=== PATIENT | male | born 1935 | race Caucasian/White ===

== ENCOUNTER 2018-11-18 01:09 | Inpatient (IN) | payer OTHER, MEDICARE ==
[~2018-11-18] VITALS: Ht 185.4 cm; Wt 103.1 kg
[~2018-11-18 01:09] MED LIST: ALLO100 PO; ATOR40TA PO; BISA10S PR; BUME2 PO; CLOP75 PO; Dandruff 1% Sh325 ML TP; Dyazide 37.5-21 EACH PO; HYDRA50 PO; ISOSORBIDE MONONITRA PO; LISI20 PO; LUBRICANT 0.5-1 EACH OP; METO25 PO; Omeprazole20 M1 PO; SIMV10 PO; TERB250 PO; TERBINAFINE HCL 1% TOP
[2018-11-18 01:36] LABS: Hematocrit 40.3 % (37.0-53.0); Hemoglobin 12.9 g/dL (13.5-17.5); Mean Corpuscular HGB 30.1 pg (26.0-34.0); Mean Corpuscular Volume 94 fL (80-100); Mean Platelet Volume 10.5 fL (9.1-12.4); Platelet Count 189 K/mm3 (150-400); RDW Coefficient Variation 12.6 % (11.7-14.2); RDW Standard Deviation 43.5 fL (35.1-46.3); Red Blood Cell Count 4.28 M/mm3 (4.30-5.90); White Blood Cell Count 15.17 K/mm3 (4.00-11.30)
[2018-11-18] MEDS ORDERED: LOSA50 PO (01:53)
[2018-11-18 01:54] LABS: BAND PERCENT MAN 8 % (0-8); BASOPHILS PERCENT MAN 0 % (0-2); EOSINOPHILS PERCENT MAN 0 % (0-6); LYMPHOCYTES PERCENT MAN 2 % (21-46); MONOCYTES PERCENT MAN 2 % (4-13); NEUTROPHILS ABSOLUTE MAN 14.56 K/mm3 (1.96-9.15); SEG NEUTROPHILS PERCENT MAN 88 % (41-73); TOTAL CELLS COUNTED 100
[2018-11-18] MEDS ORDERED: Ranitidine HCl150 M1 PO (01:54)
[2018-11-18 02:01] LABS: Albumin, Blood 3.5 g/dL (3.4-5.0); Albumin/Globulin Ratio 1.2 (0.8-1.8); Bilirubin, Total 0.4 mg/dL (0.1-1.0); Bun/Creatinine Ratio 15.7 (12.0-20.0); Calcium, Blood 7.8 mg/dL (8.5-10.1); Creatinine, Blood 2.35 mg/dL (0.60-1.20); Total Protein, Blood 6.5 g/dL (6.4-8.2)
[2018-11-18 02:04] LABS: Troponin I 1.62 ng/mL (0.000-0.040)
--- NOTE | 2018-11-18 03:58 | NUR ---
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 PT has hx of simular elevated troponin 09/30/17 2.69 and has same lt BBB. he had rt ICA stent at that time. PT has DNR status and does not agressive tx of ACS. Blood cultures are being drawn as well as urine culture pending. PT has htn and ckd chf with bnp 332. and Son accompany PT to ER and agree agressive treatment not desired. Will be on tele monitor. lovenox, plavix and asa rx . Await admission
[2018-11-18 05:27] LABS: Hematocrit 38.6 % (37.0-53.0); Hemoglobin 12.4 g/dL (13.5-17.5); Mean Corpuscular HGB 30.2 pg (26.0-34.0); Mean Corpuscular HGB Conc 32.1 g/dL (31.5-36.5); Mean Corpuscular Volume 94 fL (80-100); Mean Platelet Volume 10.7 fL (9.1-12.4); Platelet Count 201 K/mm3 (150-400); RDW Coefficient Variation 12.7 % (11.7-14.2); RDW Standard Deviation 43.7 fL (35.1-46.3); White Blood Cell Count 17.33 K/mm3 (4.00-11.30)
--- NOTE | 2018-11-18 05:31 | NUR ---
FIELDSTART IV LT AC PRESENT ON ADMISSION
[2018-11-18 06:12] LABS: Albumin, Blood 3.2 g/dL (3.4-5.0); Albumin/Globulin Ratio 1.1 (0.8-1.8); Bilirubin, Total 0.6 mg/dL (0.1-1.0); Bun/Creatinine Ratio 15.3 (12.0-20.0); Calcium, Blood 7.7 mg/dL (8.5-10.1); Creatinine, Blood 2.55 mg/dL (0.60-1.20); Potassium, Blood 4.4 mmol/L (3.5-5.5); Total Protein, Blood 6.2 g/dL (6.4-8.2)
--- NOTE | 2018-11-18 07:15 | NUR ---
PT ADMITTED WITH SEPSIS DX UTI AND ELEVATED TROPONIN. SENT FROM [facility]. ALERT ORIENTED PLEASANT WITH MILD MEMORY DEFICITS. KATHRYN SHOWS NSR FREQ PACS. DENIES ACUTE DISTRESS. VSS. DNR STATUS.
--- NOTE | 2018-11-18 10:49 | NUR ---
2ND DEGREE HEART BLOCK CONTINUOUS PULSE OX ALARMS BECAUSE HEART RATE CONTINUES TO GO BELOW 40BPM. SPACE CONTROL SUPERVISOR CALLED. STEPHY SPACE CONTROL SUPERVISOR REPORTED THAT THE PT IS GOING BACK AND FORTH BETWEEN SINUS RHYTHM WITH A 2ND DEGREE BLOCK AND NORMAL SINUS RHYTHM WITH OCCASIONAL PVCS. VITALS STABLE. PT DENIES SOB OR CHEST PAIN. PT STATES HE FEELS "FINE" DR. VALDEZ NOTIFIED. STATED SHE WILL ASSESS HIS TELE AND REVIEW HIS CHART. WILL CONTINUE TO MONITOR PT CONDITION.
[2018-11-18 11:25] LABS: Troponin I 24.3 ng/mL (0.000-0.040)
--- NOTE | 2018-11-18 11:36 | NUR ---
CRITICAL TROPONIN LAB CALLED WITH A TROPONIN OF 24.3. DR. VALDEZ NOTIFIED. DR. VALDEZ CURRENTLY REVIEWING PT CHART & EKG STRIPS. VITALS SIGNS STABLE. DR. VALDEZ ORDERED TO TRANSFER PT TO PCU. WILL CONTINUE TO MONITOR PT UNTIL TRANSFER IS COMPLETE.
[2018-11-18 11:46] LABS: Creatine Kinase MB 138.9 ng/mL (0.0-3.6)
--- NOTE | 2018-11-18 12:15 | NUR ---
REPORT CALLED TO LON BORJAS REPORT CALLED AT 1200. PT WILL BE TRANSFERED TO PCU SOON BEDSIDE ECHO IS FINISHED. WILL CONTINUE TO MONITOR UNTIL TURNOVER IS COMPLETE.
[2018-11-18 12:21] LABS: International Normalized Ratio 1.03; Prothrombin Time Results 10.9 Sec (9.7-11.5)
--- NOTE | 2018-11-18 12:56 | NUR ---
PT TRANSFERED PT TRANSFERED TO PCU. LON BORJAS TOOK PT OVER. HEPARIN VERIFIED A SECOND TIME AT BEDSIDE. GLASS WORKER MET PT AT BEDSIDE BEFORE TRANSFER. PT AND FAMILY WANT NO INVASIVE PROCEDURE TO TAKE PLACE AT THIS TIME. HEPARIN BOLUS GIVEN PRIOR TO TRANSFER. FAMILY NOTIFIED.
[2018-11-18 17:04] LABS: Troponin I 36.6 ng/mL (0.000-0.040)
[2018-11-18 17:26] LABS: Creatine Kinase MB 125.7 ng/mL (0.0-3.6); Creatine Kinase MB Index 13.7 (0.0-4.0)
[2018-11-18 17:39] LABS: CHOL/HDL RATIO 1.5; Cholesterol 59 mg/dL (50-200); HDL Cholesterol 39 mg/dL (>39); LDL/HDL RATIO 0.2; Low Density Lipoprotein Chol 9 mg/dL (0-110); Triglycerides 53 mg/dL (30-160); Very Low Density Lipoprot Chol 10 mg/dL (6-32)
--- NOTE | 2018-11-18 18:37 | NUR ---
END OF SHIFT PT HAS HAD NO CHANGES TO THE ASSESMENT, VSS, PT ABLE TO WALK, PT IS HAVING NO CHEST PAIN, PT IS WANT JUST TREATMENT
--- NOTE | 2018-11-18 22:24 | NUR ---
UPDATE: CALLED NURSE PRACTIONPEREZ MORENO AND NOTIFIED THAT THERE WERE NO FURTHER TROPONINS ORDERED. NURSE PRACTIONER JOSH STATED THAT SINCE PATIENT WAS MEDICAL MANAGMENT ONLY NO FURTHER TROPONINS NEEDED TO BE CHECKED AT THIS TIME. NO NEW ORDERS GIVEN.
[2018-11-19 05:21] LABS: BASOPHILS ABSOLUTE AUTO 0.03 K/mm3 (0.00-0.23); BASOPHILS PERCENT AUTO 0 % (0-2); EOSINOPHILS ABSOLUTE AUTO 0.12 K/mm3 (0.00-0.68); EOSINOPHILS PERCENT AUTO 1 % (0-6); Hematocrit 38.4 % (37.0-53.0); Hemoglobin 12.4 g/dL (13.5-17.5); IMMATURE GRAN ABSOLUTE AUTO 0.07 K/mm3 (0.00-0.10); IMMATURE GRAN PERCENT AUTO 1 % (0-1); LYMPHOCYTES ABSOLUTE AUTO 0.91 K/mm3 (0.84-5.20); LYMPHOCYTES PERCENT AUTO 8 % (21-46); MONOCYTES ABSOLUTE AUTO 0.76 K/mm3 (0.16-1.47); MONOCYTES PERCENT AUTO 7 % (4-13); Mean Corpuscular HGB 30.6 pg (26.0-34.0); Mean Corpuscular HGB Conc 32.3 g/dL (31.5-36.5); Mean Corpuscular Volume 95 fL (80-100); Mean Platelet Volume 10.9 fL (9.1-12.4); NEUTROPHILS ABSOLUTE AUTO 9.75 K/mm3 (1.96-9.15); NEUTROPHILS PERCENT AUTO 84 % (41-73); Platelet Count 166 K/mm3 (150-400); RDW Coefficient Variation 12.4 % (11.7-14.2); Red Blood Cell Count 4.05 M/mm3 (4.30-5.90); White Blood Cell Count 11.64 K/mm3 (4.00-11.30)
[2018-11-19 05:47] LABS: Albumin, Blood 3.1 g/dL (3.4-5.0); Albumin/Globulin Ratio 0.9 (0.8-1.8); Bilirubin, Total 0.4 mg/dL (0.1-1.0); Bun/Creatinine Ratio 16.7 (12.0-20.0); Calcium, Blood 7.6 mg/dL (8.5-10.1); Creatinine, Blood 2.52 mg/dL (0.60-1.20); Globulin, Blood 3.3 g/dL (2.2-4.0); Magnesium, Blood 2.2 mg/dL (1.6-2.4); Phosphorus, Blood 4.1 mg/dL (2.5-4.9); Potassium, Blood 4.3 mmol/L (3.5-5.5); Total Protein, Blood 6.4 g/dL (6.4-8.2)
--- NOTE | 2018-11-19 06:46 | NUR ---
SHIFT SUMMARY PATIENT PLEASENT AND COOPERATIVE THROUGHOUT THE NIGHT. NO COMPLAINTS OF PAIN OR DISCOMFORT THROUGHOUT THE NIGHT. HEPARIN GTT RUNNING PER ORDERS. PATIENT HAS HAD SEVERAL SMALL NOSE BLEEDS THROUGHOUT THE NIGHT BUT PATIENT REPORTS THAT HE HAS GOTTEN FREQUENT NOSE BLEEDS SINCE HE WAS A CHILD. PATIENT BLADDER SCANNED PER ORDERS. WILL CONTINUE TO MONITOR PATIENT AND REPORT TO ONCOMING RN.
--- NOTE | 2018-11-19 11:48 | NUR ---
Assumed Care: Assumed care of pt at approx 0700. VSS. In no apparent sign of distress. Pt is A&Ox4. Bed alarm on for safety, and pt uses call light intermittently. Repositions self. See shift assessment for detailed assessment. Plan is to medically manage NSTEMI at this time per pt wishes. Pt on heparin gtt which was verified with noc shift RN during bedside report and is running per emar. Pt currently resting in bed with call light within reach. Denies any further questions, complaints or requests at this time. Will continue to monitor.
--- NOTE | 2018-11-19 18:06 | NUR ---
Shift Summary No acute changes since initial shift assessment. VSS. In no apparent sign of distress. Pt is A&Ox4, but forgets to call at times, so bed alarm is on. Pt has denied any CP today, and has not had any acute events on tele. Repositions self and calls appropriately. Denies any complaints at all. Breathing has remained stable on RA. Denies any further questions, complaints or requests at this time. Will continue to monitor until report is given to noc shift RN.
--- NOTE | 2018-11-19 20:27 | NUR ---
ASSUMED CARE OF PATIENT AT APPROXIMATELY 1900 FROM LIVIER Vela RN. PATIENT ALERT AND ORIENTED TO SELF, AND LOCATION; PATIENT USES CALL LIGHT OCCASIONALLY. BED ALARM WENT OFF WHEN PATIENT WAS USING URINAL INDEPENDENTLY; EDUCATED ON CALLING. PATIENT DENIES CP/PRESSURE, PAIN ELSEWHERE, NUMBNESS, TINGLING, DIZZINESS AND NAUSEA. SBA OUT OF BED. NSR W/ BBB AND 1ST DEGREE BLOCK ON TELE; OXYGEN SATURATION ABOVE 90% ON ROOM AIR; HOME CPAP IN ROOM FOR NIGHT. HEPARIN INFUSING PER ORDER. PATIENT CURRENTLY WATCHING TV IN BED; CALL LIGHT IN REACH; BED IN LOWEST POSISTION; BED ALARM ON; WILL CONTINUE TO MONITOR AND ASSESS UNTIL END OF SHIFT.
--- NOTE | 2018-11-19 20:52 | NUR ---
TELE SEMICONDUCTOR PROCESSING TECHNICIAN CALLED TO REPORT PATIENT HAVING 9-12 PVCS A MINUTE SINCE APPROXIMATELY 1500.
[2018-11-20 03:44] LABS: Hematocrit 36.2 % (37.0-53.0); Hemoglobin 11.9 g/dL (13.5-17.5); Mean Corpuscular HGB 30.7 pg (26.0-34.0); Mean Corpuscular HGB Conc 32.9 g/dL (31.5-36.5); Mean Corpuscular Volume 94 fL (80-100); Platelet Count 170 K/mm3 (150-400); RDW Coefficient Variation 12.4 % (11.7-14.2); RDW Standard Deviation 42.5 fL (35.1-46.3); Red Blood Cell Count 3.87 M/mm3 (4.30-5.90); White Blood Cell Count 9.55 K/mm3 (4.00-11.30)
[2018-11-20 04:01] LABS: Bun/Creatinine Ratio 17.8 (12.0-20.0); Calcium, Blood 7.6 mg/dL (8.5-10.1); Creatinine, Blood 2.19 mg/dL (0.60-1.20)
--- NOTE | 2018-11-20 06:21 | NUR ---
PATIENT SLEPT ABOUT EIGHT HOURS LAST NIGHT; WORE HOME CPAP FOR APPROXIMATELY 6 HOURS LAST NIGHT. PATIENT ATTEMPTED TO AMBULATE INDEPENDENTLY FREQENTLY; BED ALARM SOUNDED. PATIENT URINATED FREQUENTLY LAST NIGHT. VSS. NO OTHER ACUTE CHANGES TO REPORT. WILL CONTINUE TO MONITOR AND ASSESS UNTIL END OF SHIFT.
--- NOTE | 2018-11-20 14:27 | NUR ---
Assumed Care Assumed care of pt at approx 0700. VSS. In no apparent sign of distress. Pt is A&Ox4. Bed alarm on. Denies any pain. At 1020, pt began experiencing some chest pressure 4/10 after he ambulated to the bathroom and c/o some SOB as well. Administerd nitro per orders, applied 2L O2 NC d/t SpO2 reading at 91% and notified Dr. Gardner. No further orders received at that time. Pt states that the 3 doses of nitro decreased his pain to barely a 1/10, and denied any further SOB.
[2018-11-20] MEDS ORDERED: VANICREAM453 GM TOP (14:38)
--- NOTE | 2018-11-20 18:08 | NUR ---
Shift Summary No acute changes since initial shift assessment. VSS. In no apparent sign of distress. Pt is A&Ox4 but has shown some short term memory impairment t/o the shift. Tolerated shower well today. No more CP this shift since episode at 1020 today. No other acute changes. Small amnt of ST elevation from approx [address] Gardner aware. No other changes on tele. Pt currently resting in bed with call light within reach. Denies any further questions, complaints or requests at this time. Will continue to monitor until report is given to noc shift RN.
--- NOTE | 2018-11-20 20:11 | NUR ---
CHEST PAIN; PATIENT ATTEMPTED TO AMBULATED INDEPENDENTLY TO URINATE; PATIENT'S IV LINE WAS PULLED TIGHT. ONE ASSIST OUT OF BED; REPORTED CHEST PAIN 1/10 PRESSURE IN CHEST; NO SIGNIFICANT CHANGES ON TELE; ST DEPRESSION WHEN HE FLIPS BETWEEN RHYTHYMS. NITRO ADMINISTERED AT 2007 AND BY 2010 CP WAS REPORTED GONE.
--- NOTE | 2018-11-20 22:20 | NUR ---
ASSUMED CARE OF PATIENT AT APPROXIMATELY 1900 FROM LIVIER Vela RN. PATIENT ALERT AND ORIENTED TO SELF, AND LOCATION; CONFUSED AT TIMES; PATIENT USES CALL LIGHT OCCASIONALLY. BED ALARM SOUNDS WHEN PATIENT ATTEMPTS TO USE URINAL INDEPENDENTLY; EDUCATED ON CALLING. CHEST PAIN; SEE PREVIOUS NURSING NOTE. PATIENT CURRENTLY DENIES CP/PRESSURE, PAIN ELSEWHERE, NUMBNESS, TINGLING, DIZZINESS AND NAUSEA. SBA TO ONE ASSIST OUT OF BED. NSR W/ BBB AND 1ST DEGREE BLOCK W/ MULTIPLE PVCS NOTED ON TELE; OXYGEN SATURATION ABOVE 90% ON ROOM AIR; 2LPM VIA NC PLACED FOR CP; HOME CPAP IN ROOM FOR NIGHT. HEPARIN INFUSING PER ORDER. PATIENT CURRENTLY SLEEPING IN BED; CALL LIGHT IN REACH; BED IN LOWEST POSISTION; BED ALARM ON; WILL CONTINUE TO MONITOR AND ASSESS UNTIL END OF SHIFT.
[2018-11-21 04:18] LABS: Hematocrit 35.5 % (37.0-53.0); Hemoglobin 11.7 g/dL (13.5-17.5); Mean Corpuscular HGB 30.5 pg (26.0-34.0); Mean Corpuscular Volume 92 fL (80-100); Platelet Count 177 K/mm3 (150-400); RDW Coefficient Variation 12.6 % (11.7-14.2); RDW Standard Deviation 42.8 fL (35.1-46.3); Red Blood Cell Count 3.84 M/mm3 (4.30-5.90)
--- NOTE | 2018-11-21 06:26 | NUR ---
PATIENT DID NOT USE CALL LIGHT BEFORE ATTEMPTING TO AMBULATE; VSS; NO MORE CP REPORTED. NO OTHER ACUTE CHANGES TO REPORT. PATIENT SLEPT ABOUT NINE HOURS WITH CPAP ON FOR ABOUT SIX HOURS. WILL CONTINUE TO MONITOR AND ASSESS UNTIL END OF SHIFT.
--- NOTE | 2018-11-21 09:36 | NUR ---
Assumed Care: Assumed care of pt at approx 0700. VSS. In no apparent sign of distress. Pt is A&Ox4, but has notable difficulty w/short term memory, which the has confirmed is the patient's baseline at home. Pt repositions self. Bed alarm on. Heparin gtt confirmed at bedside with noc shift RN during shift change, and it is infusing per orders. See shift assessment for detailed assessment. Pt states that at about 0500 this AM he was experiencing 1/10 chest pressure, but that once he sat up straight in bed, the pain resolved. Denies any pain at this time. Plan is to possibly DC today. Pt currently resting in bed with call light within reach. Denies any further questions, complaints or requests at this time. Will continue to monitor.
[2018-11-21] MEDS ORDERED: GUAI600T33 PO (11:23)
[2018-11-21] MEDS ORDERED: NITR.4SL SL (11:24)
[2018-11-21] MEDS ORDERED: OMEPRAZOLE MAGN20 MG PO (11:25)
[2018-11-21] MEDS ORDERED: Systane 0.3-0.1 EACH BOTHEYES (11:25)
[2018-11-21] MEDS ORDERED: TAMS.4ER PO (11:26)
[2018-11-21] MEDS ORDERED: ASPI81CH PO (11:26)
[2018-11-21] MEDS ORDERED: CEFU500T30 PO (11:27)
[2018-11-21] MEDS ORDERED: LACTOBACILLUS PO (11:29)
--- NOTE | 2018-11-21 14:07 | NUR ---
Discharge: Pt discharged at 1341. VSS. In no apparent sign of distress at time of discharge. Denied any pain or CP this shift. Educational discharge information provided to both the pt and pts soy. Pt denies any acute events or complaints t/o the shift. No changes on tele. Admission H&P/progress notes/Med rec faxed to [facility] - [place] confirmed that these documents were recieved. Pt escorted via wheelchair with all belongings and DC paperwork in hand by this RN. Denies any further questions, complaints or requests at this time.
[2018-11-22] MEDS ORDERED: Prednisone20 MG PO (06:06)
[2018-11-22] MEDS ORDERED: Lasix20 MG PO (06:10)
== END 2018-11-21 13:42 | disposition home or self-care (01) | DRG 871 ==
LOC: ER 01:09 → MEDS 03:56 → PCU 04:30 → MEDS 04:33 → PCU 12:39
PROVIDERS: Emergency Medicine; Internal Medicine; ADMIT Internal Medicine
DX: A41.9 Sepsis, unspecified organism (principal); I21.4 Non-ST elevation (NSTEMI) myocardial infarction; E87.1 Hypo-osmolality and hyponatremia; N17.9 Acute kidney failure, unspecified; N39.0 Urinary tract infection, site not specified; I12.9 Hypertensive chronic kidney disease with stage 1 through stage 4 chronic kidney disease, or unspecified chronic kidney disease; N18.3 Chronic kidney disease, stage 3 (moderate); G47.33 Obstructive sleep apnea (adult) (pediatric); E78.5 Hyperlipidemia, unspecified; F03.90 Unspecified dementia, unspecified severity, without behavioral disturbance, psychotic disturbance, mood disturbance, and anxiety; I25.2 Old myocardial infarction; I25.10 Atherosclerotic heart disease of native coronary artery without angina pectoris; K21.9 Gastro-esophageal reflux disease without esophagitis; N40.1 Benign prostatic hyperplasia with lower urinary tract symptoms; Z86.73 Personal history of transient ischemic attack (TIA), and cerebral infarction without residual deficits
CPT/HCPCS: 36415; 71046; 80048; 80053; 80061; 82550; 82553; 83036; 83735; 84100; 84484; 85025; 85027; 85610; 85730; 87040; 93005; 93010; 93306; 94762; 99285-25; J0696; J1644; J1650

== ENCOUNTER 2018-11-22 04:06 | Emergency (ER) | payer SELFPAY ==
[~2018-11-22] VITALS: Ht 182.9 cm; Wt 104.3 kg
[~2018-11-22 04:06] MED LIST changes: +ASPI81CH PO; +CEFU500T30 PO; +GUAI600T33 PO; +LACTOBACILLUS PO; +LOSA50 PO; +NITR.4SL SL; +OMEPRAZOLE MAGN20 MG PO; +Ranitidine HCl150 M1 PO; +Systane 0.3-0.1 EACH BOTHEYES; +TAMS.4ER PO; +VANICREAM453 GM TOP
[2018-11-22 04:44] LABS: BASOPHILS ABSOLUTE AUTO 0.03 K/mm3 (0.00-0.23); BASOPHILS PERCENT AUTO 0 % (0-2); EOSINOPHILS ABSOLUTE AUTO 0.02 K/mm3 (0.00-0.68); EOSINOPHILS PERCENT AUTO 0 % (0-6); IMMATURE GRAN ABSOLUTE AUTO 0.06 K/mm3 (0.00-0.10); IMMATURE GRAN PERCENT AUTO 1 % (0-1); LYMPHOCYTES PERCENT AUTO 4 % (21-46); MONOCYTES ABSOLUTE AUTO 0.69 K/mm3 (0.16-1.47); MONOCYTES PERCENT AUTO 7 % (4-13); Mean Corpuscular HGB 30.2 pg (26.0-34.0); Mean Corpuscular HGB Conc 32.4 g/dL (31.5-36.5); Mean Corpuscular Volume 93 fL (80-100); NEUTROPHILS ABSOLUTE AUTO 9.07 K/mm3 (1.96-9.15); NEUTROPHILS PERCENT AUTO 88 % (41-73); Platelet Count 191 K/mm3 (150-400); RDW Coefficient Variation 12.6 % (11.7-14.2); RDW Standard Deviation 43.8 fL (35.1-46.3); Red Blood Cell Count 3.97 M/mm3 (4.30-5.90); White Blood Cell Count 10.27 K/mm3 (4.00-11.30)
[2018-11-22 05:06] LABS: Albumin, Blood 3.1 g/dL (3.4-5.0); Albumin/Globulin Ratio 0.8 (0.8-1.8); Bilirubin, Total 0.5 mg/dL (0.1-1.0); Bun/Creatinine Ratio 19.4 (12.0-20.0); Calcium, Blood 7.9 mg/dL (8.5-10.1); Creatinine, Blood 2.16 mg/dL (0.60-1.20); Globulin, Blood 3.7 g/dL (2.2-4.0); Potassium, Blood 4.3 mmol/L (3.5-5.5); Total Protein, Blood 6.8 g/dL (6.4-8.2)
[2018-11-22 05:15] LABS: Troponin I 2.74 ng/mL (0.000-0.040)
[2018-11-22] MEDS ORDERED: Prednisone20 MG PO (06:06)
[2018-11-22] MEDS ORDERED: Lasix20 MG PO (06:10)
== END 2018-11-22 06:39 | disposition home or self-care (01) ==
LOC: ER 04:06
PROVIDERS: Emergency Medicine
DX: J45.909 Unspecified asthma, uncomplicated (principal); I50.9 Heart failure, unspecified; F32.9 Major depressive disorder, single episode, unspecified; K21.9 Gastro-esophageal reflux disease without esophagitis; I25.2 Old myocardial infarction; Z88.8 Allergy status to other drugs, medicaments and biological substances; Z79.82 Long term (current) use of aspirin; Z79.899 Other long term (current) drug therapy; Z86.73 Personal history of transient ischemic attack (TIA), and cerebral infarction without residual deficits; Z87.891 Personal history of nicotine dependence; Z98.890 Other specified postprocedural states
CPT/HCPCS: 36415; 71046; 80053; 83880; 84484; 85025; 93005; 93010; 94640; 96374; 99285-25; J1940